=== PATIENT | male | born 1990 | race Caucasian/White ===

== ENCOUNTER 2016-08-16 21:11 | Emergency (ER) | payer OTHER ==
[~2016-08-16] VITALS: Ht 177.8 cm; Wt 77.1 kg
[~2016-08-16 21:11] MED LIST: [UNRECOGNIZED DRUG - OTHER] SQ
--- NOTE | 2016-08-16 21:41 | ED SKIN/ALLERGY COMPLAINT ---
History of Present Illness General Chief Complaint: Allergy Symptoms Stated Complaint: "PER PT HAVING ANAPHYLACTIC SHOCK?" Source: patient Exam Limitations: no limitations Vital Signs & Intake/Output Vital Signs & Intake/Output Vital Signs Date Time Temp Pulse Resp B/P B/P Pulse O2 O2 Flow FiO2 Mean Ox Delivery Rate 08/16 2353 97.2 82 22 122/70 98 08/16 2316 99 08/16 2242 97.5 87 18 128/59 97 Room Air 08/16 2120 100.2 100 18 165/75 99 Room Air ED Intake and Output 08/17 0000 08/16 1200 Intake Total 1000 Output Total Balance 1000 Intake, IV 1000 Patient 170 lb Weight Weight Reported by Patient Measurement Method Allergies Uncoded Allergies: SHELLFISH (Intermediate, ANAPHYLACTIC SHOCK 08/16/16) Reconcile Medications Epinephrine (Auvi-Q) 0.3 MG/0.3 ML AUTO.INJCT 1 UNIT IM AD PRN ALLERGIES ( Reported) Epinephrine (Auvi-Q) 0.3 MG/0.3 ML AUTO.INJCT 1 INJ SQ ONCE ANAPHYAXIS Epinephrine (Epipen 2-Juan) 0.3 MG/0.3 ML AUTO.INJCT 1 INJ SQ ONCE ANAPHYALXIS Meclizine HCl 25 MG TAB.CHEW 1 TAB PO PRN PRN DIZZINESS (Reported) Methylprednisolone. 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 PT IS ALLERGIC TO SHELLFISH. FELT THROAT AND LIPS TINGLING, SOB, ANXIETY, PALPITATIONS AFTER MEAL. TOOK BENADRYL AND USED EPI-PEN. PT FEELING BETTER NOW, BUT NEEDS A CHECK UP. VSS. Triage Nurses Notes Reviewed? yes Onset: Abrupt (1 hour ago) Duration: hour(s): (1) Timing: single episode today Severity: mild, moderate Severity Numbers: 5 Location: generalized (anxiety) Possible Factors: exposure to allergen, foods (shellfish) No Modifying Factors: none Associated Symptoms: anxiety HPI: 25-year-old male with no past medical history presents to the emergency department for a possible allergic reaction. Patient has a history of shellfish allergy and was eating Romansh food that may at that shellfish in it. While eating he began to feel tingling around his lips and intense anxiety so he administered his EpiPen approximately 30 minutes before arrival. He currently feels no shortness of breath no trouble swallowing no swelling of his lips tongue or throat but is feeling anxious. He denies ever having to administer the EpiPen before or any history of anaphylactic shock. Onset was acute quality was severe as it required patient come to the emergency department. (LAM TEJADA) Past History Travel History Traveled to [place] past 21 day No Medical History Any Pertinent Medical History? see below for history Surgical History Surgical History: none Psychosocial History What is your primary language [place] Tobacco Use: Never used Family History Hx Contributory? No (LAM TEJADA) Review of Systems Review of Systems Constitutional: Reports: no symptoms. EENTM: Reports: no symptoms. Respiratory: Reports: no symptoms. Cardiovascular: Reports: no symptoms. GI: Reports: no symptoms. Genitourinary: Reports: no symptoms. Musculoskeletal: Reports: no symptoms. Skin: Reports: no symptoms. Neurological/Psychological: Reports: no symptoms. Hematologic/Endocrine: Reports: no symptoms. Immunologic/Allergic: Reports: see HPI (anxiety). All Other Systems: Reviewed and Negative (LAM TEJADA) Physical Exam Physical Exam General Appearance: well developed/nourished, no apparent distress, alert, awake , anxious Head: atraumatic, normal appearance Eyes: Bilateral: normal appearance, PERRL, EOMI. Ears, Nose, Throat: normal pharynx, normal ENT inspection, hearing grossly normal Neck: normal inspection, supple, full range of motion Respiratory: normal breath sounds, chest non-tender, no respiratory distress, lungs clear Cardiovascular: regular rate/rhythm Peripheral Pulses: 2+ radial (R), 2+ radial (L) Gastrointestinal: normal bowel sounds, soft, non-tender, no organomegaly Back: normal inspection, normal range of motion Extremities: normal inspection, no edema Neurologic/Psych: no motor/sensory deficits, awake, alert, oriented x 3, normal gait Skin: intact, normal color, warm/dry Lymphatic: no anterior cervical lee Comments: Patient appears anxious but exam is otherwise normal. No swelling the lips tongue or throat no respiratory distress no rashes. (LAM TEJADA) Progress Differential Diagnosis: allergic reaction, anaphylaxis, angioedema, contact dermatitis, drug reaction, urticaria Plan of Care: Orders Procedure Date/time Status Telemetry/[place] 08/16 2144 Active Currently no respiratory distress no swelling of the lips tongue or throat patient does report anxiety. Patient will be monitored on telemetry in the emergency department. He'll be given 1 L of normal saline and 125 of Solu- Medrol IV. he will be monitored in the emergency department until resolution of symptoms. 2349 patient reports much improvement in his symptoms. Lungs are clear to auscultation he is normal sinus in the 70s on the monitor. (LAM TEJADA) Rhythm Strip: sinus tachycardia (LAM TEJADA) Departure Departure Time of Disposition: 2348 Disposition: HOME OR SELF CARE Condition: Stable Clinical Impression Primary Impression: Allergic reaction Referrals: PATIENT HAS NO PRIMARY CARE DR (PCP/Family) Additional Instructions: Rest and plenty of fluids. Take steroids as directed for the full course administer EpiPen and return to the emergency department with any swelling of the lips tongue throat any trouble swallowing or any shortness of breath. Follow-up point with a primary care doctor this week. Return to the ER with any concerns. Departure Forms: Customer Survey General Discharge Information Prescriptions: Current Visit Scripts Epinephrine (Auvi-Q) 1 INJ SQ ONCE #1 PAC Methylprednisolone. (Medrol) 1 DP PO AD #1 DP 6 on day 1 then reduce by one tablet daily until gone Epinephrine (Epipen 2-Juan) 1 INJ SQ ONCE #1 PAC (LAM TEJADA) PA/MARKET BASKET MAKER Co-Sign Statement Statement: ED Attending supervision documentation- [] I saw and evaluated the patient. I have also reviewed all the pertinent lab results and diagnostic results. I agree with the findings and the plan of care as documented in the PA's/MARKET BASKET MAKER's documentation. [X] I have reviewed the ED Record and agree with the PA's/MARKET BASKET MAKER's documentation. [] Additions or exceptions (if any) to the PAs/MARKET BASKET MAKER's note and plan are summarized below: [] (DARELL JARAMILLO,CAR)
[2016-08-16] MEDS ORDERED: [UNRECOGNIZED DRUG - OTHER] IM (23:19)
[2016-08-16] MEDS ORDERED: MECLIZINE HCL25 M2 PO (23:20)
[2016-08-16] MEDS ORDERED: MEDROL4 M2 PO (23:52)
[2016-08-16] MEDS ORDERED: EPIPEN 2-P0.3 MG/0.3 SQ (23:52)
[2016-08-16 23:53] VITALS: BP 122/70
== END 2016-08-17 00:04 ==
LOC: ERH 21:11
DX: F41.9 Anxiety disorder, unspecified (principal); T78.40XA Allergy, unspecified, initial encounter
CPT/HCPCS: 96361; 96374; J2930